=== PATIENT | male | born 1950 | race Caucasian/White ===

== ENCOUNTER → 2016-09-13 | Outpatient (CLI) | payer MEDICARE ==
[2016-09-13 08:45] LABS: BASO # 0.1 10*3/uL (0.0-0.1); BASO % 0.8 % (0.0-1.0); EOS # 0.5 10*3/uL (0.0-0.4); EOS % 5.5 % (1.0-4.0); HEMATOCRIT 49.5 % (42.0-52.0); HEMOGLOBIN 16.5 g/dl (14.0-18.0); LYMPH # 2.4 10*3/uL (1.3-4.4); LYMPH % 26.9 % (27.0-41.0); MEAN CELL VOLUME 86.7 fl (80.0-94.0); MEAN CORPUSCULAR HGB 28.9 pg (27.0-31.0); MEAN CORPUSCULAR HGB CONC 33.3 g/dl (33.0-37.0); MEAN PLATELET VOLUME 10.2 fl (9.6-12.3); MONO # 0.9 10*3/uL (0.1-1.0); MONO % 9.6 % (3.0-9.0); NEUT # 5.1 10*3/uL (2.3-7.9); NEUT % 57.1 % (47.0-73.0); PLATELET COUNT AUTOMATED 177 10*3/uL (130-400); RED BLOOD COUNT 5.71 10*6/uL (4.50-5.90); RED CELL DISTRI WIDTH 13.6 % (0-14.5)
[2016-09-13 09:10] LABS: BUN 15 mg/dl (7-24); CARBON DIOXIDE 31 mmol/L (21-32); CHLORIDE 106 mmol/L (98-107); EST GLOM FILT AFRICAN AMERICAN > 60 ml/min; GLUCOSE 99 mg/dL (65-99); SODIUM 141 mmol/L (136-145)
== END | disposition home or self-care (01) ==
LOC: LAB 08:10
PROVIDERS: Family Medicine
DX: M10.9 Gout, unspecified (principal)

== ENCOUNTER 2020-08-17 18:57 | Emergency (ER) | payer MEDICARE ==
[~2020-08-17] VITALS: Ht 185.4 cm; Wt 101.2 kg
[2020-08-17] MEDS ORDERED: SEPTDS PO (20:58)
== END 2020-08-17 22:20 | disposition home or self-care (01) ==
LOC: ED 18:57
DX: L03.116 Cellulitis of left lower limb (principal)

== ENCOUNTER → 2020-09-01 | Outpatient (CLI) | payer MEDICARE ==
[~2020-09-01] MED LIST: SEPTDS PO
== END | disposition home or self-care (01) ==
LOC: RESCLI 02:50
PROVIDERS: ATTEND Internal Medicine
DX: Z71.89 Other specified counseling (principal); M10.9 Gout, unspecified; Z98.890 Other specified postprocedural states; Z79.899 Other long term (current) drug therapy

== ENCOUNTER → 2020-09-07 | Outpatient (CLI) | payer MEDICARE ==
[2020-09-07 08:44] LABS: BASO # 0.1 10*3/uL (0.0-0.1); BASO % 0.7 % (0.0-1.0); EOS # 0.5 10*3/uL (0.0-0.4); EOS % 6.5 % (1.0-4.0); HEMATOCRIT 50.5 % (42.0-52.0); LYMPH # 1.9 10*3/uL (1.3-4.4); LYMPH % 24.7 % (27.0-41.0); MEAN CORPUSCULAR HGB 28.8 pg (27.0-31.0); MEAN CORPUSCULAR HGB CONC 33.5 g/dl (33.0-37.0); MONO % 12.9 % (3.0-9.0); NEUT # 4.2 10*3/uL (2.3-7.9); NEUT % 55.1 % (47.0-73.0); PLATELET COUNT AUTOMATED 171 10*3/uL (130-400); RED BLOOD COUNT 5.87 10*6/uL (4.50-5.90); WHITE BLOOD COUNT 7.7 10*3/uL (4.8-10.8)
[2020-09-07 09:35] LABS: ALBUMIN 3.6 gm/dl (3.1-4.5); ALKALINE PHOSPHATASE 90 U/L (45-117); BUN 18 mg/dl (7-24); CHLORIDE 107 mmol/L (98-107); CHOLESTEROL 167 mg/dL (<200); CREATININE 1.16 mg/dL (0.70-1.30); LDL CHOLESTEROL 110 mg/dL (9-159); POTASSIUM 4.2 mmol/L (3.5-5.1); SGOT/AST 14 IU/L (3-35); SGPT/ALT 25 U/L (12-78); SODIUM 140 mmol/L (136-145); TOTAL PROTEIN 7.5 gm/dL (6.4-8.2); TRIGLYCERIDES 139 mg/dl (<150)
== END | disposition home or self-care (01) ==
LOC: LAB 08:20
PROVIDERS: ATTEND Internal Medicine
DX: E66.9 Obesity, unspecified (principal); Z71.89 Other specified counseling

== ENCOUNTER 2020-10-18 20:47 | Emergency (ER) | payer MEDICARE ==
[~2020-10-18] VITALS: Ht 175.2 cm
[2020-10-18 21:00] LABS: BASO # 0.1 10*3/uL (0.0-0.1); BASO % 0.4 % (0.0-1.0); EOS # 0.3 10*3/uL (0.0-0.4); EOS % 2.4 % (1.0-4.0); HEMATOCRIT 52.6 % (42.0-52.0); LYMPH % 14.3 % (27.0-41.0); MEAN CELL VOLUME 87.4 fl (80.0-94.0); MEAN CORPUSCULAR HGB 28.6 pg (27.0-31.0); MEAN CORPUSCULAR HGB CONC 32.7 g/dl (33.0-37.0); MEAN PLATELET VOLUME 9.7 fl (9.6-12.3); MONO # 1.2 10*3/uL (0.1-1.0); MONO % 8.5 % (3.0-9.0); NEUT # 10.3 10*3/uL (2.3-7.9); PLATELET COUNT AUTOMATED 176 10*3/uL (130-400); RED BLOOD COUNT 6.02 10*6/uL (4.50-5.90); RED CELL DISTRI WIDTH 13.7 % (0-14.5); WHITE BLOOD COUNT 13.9 10*3/uL (4.8-10.8)
[2020-10-18 21:15] LABS: ALBUMIN 3.5 gm/dl (3.1-4.5); ALKALINE PHOSPHATASE 95 U/L (45-117); BUN 18 mg/dl (7-24); CHLORIDE 106 mmol/L (98-107); CREATININE 1.28 mg/dL (0.70-1.30); SGOT/AST 39 IU/L (3-35); SGPT/ALT 28 U/L (12-78); SODIUM 139 mmol/L (136-145); TOTAL PROTEIN 7.9 gm/dL (6.4-8.2)
== END 2020-10-18 21:25 | disposition short-term general hospital (02) ==
LOC: ED 20:47
PROVIDERS: Emergency Medicine
DX: I21.3 ST elevation (STEMI) myocardial infarction of unspecified site (principal)

== ENCOUNTER → 2021-05-16 | Outpatient (CLI) | payer MEDICARE | END | disposition home or self-care (01) | LOC: RESCLI 13:21 | PROVIDERS: ATTEND Internal Medicine Nephrology | DX: I25.810 Atherosclerosis of coronary artery bypass graft(s) without angina pectoris (principal); M1A.9XX0 Chronic gout, unspecified, without tophus (tophi); Z95.5 Presence of coronary angioplasty implant and graft; Z12.11 Encounter for screening for malignant neoplasm of colon; Z68.30 Body mass index [BMI] 30.0-30.9, adult; Z79.82 Long term (current) use of aspirin; Z79.899 Other long term (current) drug therapy ==

== ENCOUNTER → 2021-07-18 | Outpatient (CLI) | payer OTHER | END | disposition home or self-care (01) | LOC: RESCLI 12:48 | PROVIDERS: ATTEND Internal Medicine | DX: I25.810 Atherosclerosis of coronary artery bypass graft(s) without angina pectoris (principal); M1A.9XX0 Chronic gout, unspecified, without tophus (tophi); Z68.30 Body mass index [BMI] 30.0-30.9, adult; Z95.5 Presence of coronary angioplasty implant and graft; Z87.891 Personal history of nicotine dependence; Z79.82 Long term (current) use of aspirin; Z79.899 Other long term (current) drug therapy; Z98.890 Other specified postprocedural states ==

== ENCOUNTER → 2021-10-17 | Outpatient (CLI) | payer OTHER | END | disposition home or self-care (01) | LOC: RESCLI 01:30 | PROVIDERS: ATTEND Internal Medicine | DX: I25.10 Atherosclerotic heart disease of native coronary artery without angina pectoris (principal); Z68.30 Body mass index [BMI] 30.0-30.9, adult; Z95.5 Presence of coronary angioplasty implant and graft; G47.00 Insomnia, unspecified; E78.5 Hyperlipidemia, unspecified; M1A.9XX0 Chronic gout, unspecified, without tophus (tophi); Z79.899 Other long term (current) drug therapy; Z79.82 Long term (current) use of aspirin; Z87.891 Personal history of nicotine dependence ==

== ENCOUNTER → 2022-01-21 | Outpatient (CLI) | payer OTHER | END | disposition home or self-care (01) | LOC: RESCLI 02:53 | PROVIDERS: ATTEND Internal Medicine | DX: R60.0 Localized edema (principal); H61.20 Impacted cerumen, unspecified ear; E78.5 Hyperlipidemia, unspecified; I25.810 Atherosclerosis of coronary artery bypass graft(s) without angina pectoris; Z79.899 Other long term (current) drug therapy; Z98.890 Other specified postprocedural states; Z72.0 Tobacco use; Z95.5 Presence of coronary angioplasty implant and graft ==

== ENCOUNTER → 2022-04-01 | Outpatient (CLI) | payer OTHER | END | disposition home or self-care (01) | LOC: RESCLI 00:42 | PROVIDERS: ATTEND Internal Medicine | DX: Z23 Encounter for immunization (principal); H91.90 Unspecified hearing loss, unspecified ear; R60.0 Localized edema; M10.9 Gout, unspecified; E78.5 Hyperlipidemia, unspecified; I25.10 Atherosclerotic heart disease of native coronary artery without angina pectoris; Z87.891 Personal history of nicotine dependence; Z79.899 Other long term (current) drug therapy; Z95.5 Presence of coronary angioplasty implant and graft ==

== ENCOUNTER → 2022-04-02 | Outpatient (CLI) | payer OTHER ==
[2022-04-02 11:01] LABS: BASO # 0.1 10*3/uL (0.0-0.1); BASO % 0.8 % (0.0-1.0); EOS # 0.5 10*3/uL (0.0-0.4); EOS % 5.9 % (1.0-4.0); HEMATOCRIT 51.5 % (42.0-52.0); LYMPH # 1.4 10*3/uL (1.3-4.4); LYMPH % 16.8 % (27.0-41.0); MEAN CELL VOLUME 86.8 fl (80.0-94.0); MEAN CORPUSCULAR HGB 29.5 pg (27.0-31.0); MONO # 1.1 10*3/uL (0.1-1.0); MONO % 12.6 % (3.0-9.0); NEUT # 5.4 10*3/uL (2.3-7.9); NEUT % 63.7 % (47.0-73.0); PLATELET COUNT AUTOMATED 148 10*3/uL (130-400); RED BLOOD COUNT 5.93 10*6/uL (4.50-5.90); RED CELL DISTRI WIDTH 13.8 % (0-14.5); WHITE BLOOD COUNT 8.4 10*3/uL (4.8-10.8)
[2022-04-02 11:06] LABS: CHLORIDE 103 mmol/L (98-107); POTASSIUM 4.2 mmol/L (3.4-5.1); SODIUM 139 mmol/L (136-145)
[2022-04-02 11:15] LABS: BUN 11 mg/dl (9-23); CREATININE 1.03 mg/dL (0.70-1.30)
[2022-04-02 11:16] LABS: ALKALINE PHOSPHATASE 77 U/L (46-116); TRIGLYCERIDES 88 mg/dl (<150)
[2022-04-02 11:17] LABS: CHOLESTEROL 118 mg/dL (<200); SGPT/ALT 27 U/L (10-49); TOTAL PROTEIN 6.9 gm/dL (6.0-8.0)
[2022-04-02 11:21] LABS: LDL CHOLESTEROL 67 mg/dL (9-159)
== END | disposition home or self-care (01) ==
LOC: LAB 10:20
PROVIDERS: ATTEND Student in an Organized Health Care Education/Training Program
DX: E78.5 Hyperlipidemia, unspecified (principal); Z79.899 Other long term (current) drug therapy

== ENCOUNTER → 2022-07-01 | Outpatient (CLI) | payer MEDICARE | END | disposition home or self-care (01) | LOC: RESCLI 11:40 | PROVIDERS: ATTEND Internal Medicine | DX: I25.810 Atherosclerosis of coronary artery bypass graft(s) without angina pectoris (principal); E78.5 Hyperlipidemia, unspecified; R60.0 Localized edema; F17.200 Nicotine dependence, unspecified, uncomplicated; Z98.890 Other specified postprocedural states; Z79.82 Long term (current) use of aspirin; Z79.899 Other long term (current) drug therapy ==

== ENCOUNTER → 2022-12-24 | Outpatient (CLI) | payer MEDICARE | END | disposition home or self-care (01) | LOC: RESCLI 01:54 | PROVIDERS: ATTEND Student in an Organized Health Care Education/Training Program | DX: I25.810 Atherosclerosis of coronary artery bypass graft(s) without angina pectoris (principal); Z98.890 Other specified postprocedural states; Z87.891 Personal history of nicotine dependence; Z79.899 Other long term (current) drug therapy ==

== ENCOUNTER → 2023-11-26 | Outpatient (CLI) | payer MEDICARE ==
[2023-11-26 09:11] LABS: BASO # 0.1 10*3/uL (0.0-0.1); BASO % 0.7 % (0.0-1.0); EOS # 0.4 10*3/uL (0.0-0.4); HEMATOCRIT 51.7 % (42.0-52.0); LYMPH # 2.3 10*3/uL (1.3-4.4); LYMPH % 27.2 % (27.0-41.0); MEAN CELL VOLUME 86.2 fl (80.0-94.0); MEAN CORPUSCULAR HGB 29.8 pg (27.0-31.0); MEAN CORPUSCULAR HGB CONC 34.6 g/dl (33.0-37.0); MEAN PLATELET VOLUME 9.7 fl (9.6-12.3); MONO # 0.9 10*3/uL (0.1-1.0); MONO % 10.7 % (3.0-9.0); NEUT # 4.7 10*3/uL (2.3-7.9); NEUT % 56.2 % (47.0-73.0); PLATELET COUNT AUTOMATED 144 10*3/uL (130-400); WHITE BLOOD COUNT 8.4 10*3/uL (4.8-10.8)
[2023-11-26 09:46] LABS: ALKALINE PHOSPHATASE 99 U/L (46-116); BUN 9 mg/dl (9-23); CHLORIDE 107 mmol/L (98-107); CHOLESTEROL 135 mg/dL (<200); LDL CHOLESTEROL 89 mg/dL (9-159); SGPT/ALT 27 U/L (5-49); TOTAL PROTEIN 6.9 gm/dL (6.0-8.0); TRIGLYCERIDES 92 mg/dl (<150)
== END | disposition home or self-care (01) ==
LOC: LAB 08:35
PROVIDERS: ATTEND Student in an Organized Health Care Education/Training Program
DX: E78.5 Hyperlipidemia, unspecified (principal)

== ENCOUNTER → 2023-12-30 | Outpatient (CLI) | payer MEDICARE | END | disposition home or self-care (01) | LOC: RESCLI 08:02 | PROVIDERS: ATTEND Family Medicine | DX: H72.92 Unspecified perforation of tympanic membrane, left ear (principal); I25.10 Atherosclerotic heart disease of native coronary artery without angina pectoris; E78.5 Hyperlipidemia, unspecified; Z95.5 Presence of coronary angioplasty implant and graft; M10.9 Gout, unspecified; Z98.890 Other specified postprocedural states; Z79.82 Long term (current) use of aspirin; Z79.899 Other long term (current) drug therapy ==

== ENCOUNTER → 2024-03-16 | Outpatient (CLI) | payer OTHER | END | disposition home or self-care (01) | LOC: RESCLI 14:33 | PROVIDERS: ATTEND Internal Medicine | DX: R60.0 Localized edema (principal); I25.810 Atherosclerosis of coronary artery bypass graft(s) without angina pectoris; Z98.890 Other specified postprocedural states; Z79.899 Other long term (current) drug therapy ==

== ENCOUNTER → 2024-07-06 | Outpatient (CLI) | payer MEDICARE ==
[~2024-07-06] MED LIST changes: +PNEUMOC 20-VAL CONJ-DIP CRM/PF 0.5 ML SYRINGE IM ONE
[2024-07-06 12:13] LABS: BASO # 0.1 10*3/uL (0.0-0.1); BASO % 0.7 % (0.0-1.0); EOS # 0.5 10*3/uL (0.0-0.4); EOS % 4.9 % (1.0-4.0); HEMATOCRIT 52.1 % (42.0-52.0); MEAN CELL VOLUME 88.3 fl (80.0-94.0); MEAN CORPUSCULAR HGB CONC 32.8 g/dl (33.0-37.0); MEAN PLATELET VOLUME 9.4 fl (9.6-12.3); MONO # 1.2 10*3/uL (0.1-1.0); MONO % 13.2 % (3.0-9.0); NEUT # 5.4 10*3/uL (2.3-7.9); NEUT % 58.9 % (47.0-73.0); PLATELET COUNT AUTOMATED 163 10*3/uL (130-400); RED CELL DISTRI WIDTH 13.5 % (0-14.5); WHITE BLOOD COUNT 9.1 10*3/uL (4.8-10.8)
[2024-07-06 12:48] LABS: ALKALINE PHOSPHATASE 96 U/L (46-116); BUN 14 mg/dl (9-23); CHLORIDE 105 mmol/L (98-107); POTASSIUM 4.1 mmol/L (3.4-5.1); SGPT/ALT 23 U/L (5-49); TOTAL PROTEIN 7.1 gm/dL (6.0-8.0)
== END | disposition home or self-care (01) ==
LOC: LAB 01:51 → RESCLI 01:51
PROVIDERS: Internal Medicine; ATTEND Internal Medicine
DX: I25.10 Atherosclerotic heart disease of native coronary artery without angina pectoris (principal); R60.0 Localized edema; Z00.00 Encounter for general adult medical examination without abnormal findings

== ENCOUNTER 2024-11-19 19:16 | Emergency (ER) | payer MEDICARE ==
[~2024-11-19] VITALS: Ht 185.4 cm; Wt 106.1 kg
[~2024-11-19 19:16] MED LIST changes: -PNEUMOC 20-VAL CONJ-DIP CRM/PF 0.5 ML SYRINGE IM ONE
[2024-11-19] MEDS ORDERED: TOPROL XL25 MG PO (20:02)
[2024-11-19] MEDS ORDERED: LIPITOR80 MG PO (20:03)
[2024-11-19] MEDS ORDERED: ASPIRIN FOR CHI81 MG PO (20:03)
[2024-11-19] MEDS ORDERED: PREDNISONE50 MG PO (20:34)
[2024-11-19] MEDS ORDERED: Water, Sterile 10 ML VIAL ONE (20:59)
== END 2024-11-19 20:58 | disposition home or self-care (01) ==
LOC: ED 19:16
DX: M10.031 Idiopathic gout, right wrist (principal); Z79.82 Long term (current) use of aspirin; Z79.899 Other long term (current) drug therapy

== ENCOUNTER → 2024-12-09 | Outpatient (CLI) | payer OTHER ==
[~2024-12-09] MED LIST changes: +ASPIRIN FOR CHI81 MG PO; +LIPITOR80 MG PO; +PREDNISONE50 MG PO; +TOPROL XL25 MG PO
== END | disposition home or self-care (01) ==
LOC: RESCLI 10:43
PROVIDERS: ATTEND Family Medicine
DX: M10.9 Gout, unspecified (principal); I25.810 Atherosclerosis of coronary artery bypass graft(s) without angina pectoris; E78.5 Hyperlipidemia, unspecified; Z79.899 Other long term (current) drug therapy; Z98.890 Other specified postprocedural states

== ENCOUNTER → 2024-12-30 | Outpatient (CLI) | payer OTHER | END | disposition home or self-care (01) | LOC: RESCLI 09:06 | PROVIDERS: ATTEND Internal Medicine | DX: M10.9 Gout, unspecified (principal); I25.10 Atherosclerotic heart disease of native coronary artery without angina pectoris; E78.5 Hyperlipidemia, unspecified; Z79.899 Other long term (current) drug therapy; Z98.890 Other specified postprocedural states ==

== ENCOUNTER → 2025-02-16 | Outpatient (CLI) | payer MEDICARE ==
[~2025-02-16] MED LIST changes: +COLCHICINE0.6 M2 PO
== END | disposition home or self-care (01) ==
LOC: RAD 10:03
PROVIDERS: ATTEND Internal Medicine
DX: S69.91XA Unspecified injury of right wrist, hand and finger(s), initial encounter (principal); M18.11 Unilateral primary osteoarthritis of first carpometacarpal joint, right hand; M85.88 Other specified disorders of bone density and structure, other site; X58.XXXA Exposure to other specified factors, initial encounter; Y93.89 Activity, other specified; Y92.89 Other specified places as the place of occurrence of the external cause; Y99.8 Other external cause status

== ENCOUNTER 2025-02-18 21:45 | Emergency (ER) | payer MEDICARE ==
[~2025-02-18] VITALS: Wt 103.4 kg
[~2025-02-18 21:45] MED LIST changes: -COLCHICINE0.6 M2 PO
[2025-02-18] MEDS ORDERED: COLCHICINE0.6 M2 PO (21:58)
== END 2025-02-18 22:46 | disposition home or self-care (01) ==
LOC: ED 21:45
DX: S62.101A Fracture of unspecified carpal bone, right wrist, initial encounter for closed fracture (principal); X58.XXXA Exposure to other specified factors, initial encounter; Y93.89 Activity, other specified; Y92.89 Other specified places as the place of occurrence of the external cause; Y99.8 Other external cause status